=== PATIENT | male | born 1985 | race African-American/Black ===

== ENCOUNTER 2021-03-22 15:16 | Emergency (ER) | payer OTHER, SELFPAY ==
--- NOTE | ~2021-03-22 | XR_ITS ---
EXAMINATION: XR chest 2V 03/22/2021 16:45 INDICATION: Cough for 3 days. History of Covid infection. PROCEDURE: 2 view chest COMPARISON: No prior studies for comparison. FINDINGS: The lungs are clear. The cardiomediastinal silhouette is within normal limits. There are no pleural effusions. There is no pneumothorax suspected. IMPRESSION: 1: NO ACUTE CARDIOPULMONARY DISEASE. Reviewed, dictated and finalized at location A. O ANNOUNCER
[2021-03-22 15:26] VITALS: BP 138/79; PULSE 88; RESP 16; TEMP 36.6; O2SAT 100
[2021-03-22 15:30] VITALS: BP 138/79; PULSE 86; PULSE 88; RESP 16; RESP 20; TEMP 36.6; O2SAT 100; O2SAT 99
--- NOTE | 2021-03-22 16:03 | ED.URI ---
HPI - URI/Sore Throat General Chief Complaint: Upper Respiratory Infection Stated Complaint: cough,sob,wheezing Time Seen by Provider: 03/22/21 15:49 Source: patient and RN notes reviewed Mode of arrival: ambulatory Limitations: no limitations History of Present Illness HPI Narrative: Patient presents today with a 2 to 3-day history of cough with shortness of breath and subjective fever. Patient also reports right-sided sore throat that is likely due to coughing. Denies congestion, rhinorrhea, ear pain. Patient had COVID-16 February 2020 and was on a ventilator for a period of time. She now has lung related issues related to that. She has been using her nebulizer as well as inhaler. She typically only uses her albuterol inhaler prior to exercise, and has been using it over the last couple of days 6-7 times per day. She is also been using guaifenesin cough medicine, cough drops, and Manasa without much relief. She got her COVID-19 booster shot a few hours prior to onset of the cough. MD elicited complaint: cough Related Data Home Medications Medication Instructions Recorded Confirmed albuterol sulfate 90 mcg INHALATION PRN PRN 03/22/21 03/22/21 epinephrine 0.3 mg IM PRN PRN 03/22/21 03/22/21 ergocalciferol (vitamin D2) 1,250 mcg PO BID 03/22/21 03/22/21 fluticasone propion-salmeterol 2 inh INHALATION DAILY 03/22/21 03/22/21 [Advair HFA] fluticasone propionate 50 mcg INTRANASAL DAILY 03/22/21 03/22/21 montelukast 10 mg PO DAILY 03/22/21 03/22/21 omalizumab [Xolair] 150 mg SUBCUT MONTHLY 03/22/21 03/22/21 Allergies Allergy/AdvReac Type Severity Reaction Status Date / Time doxycycline Allergy Intermediate Nausea and Verified 03/22/21 16:17 Vomiting shellfish derived AdvReac Severe Anaphylaxis Verified 03/22/21 16:16 fentanyl AdvReac Intermediate Palpitation Verified 03/22/21 16:18 s Iodinated Contrast Media AdvReac Mild Hives Verified 03/22/21 16:17 Review of Systems Review of Systems: CONSTITUTIONAL: Denies body aches, fever, chills, or sweats. EYES: Denies visual changes, redness, or discharge. ENT: Denies rhinorrhea, congestion, or otalgia.+ Sore throat CARDIOVASCULAR: Denies chest pain, palpitations, or edema. RESPIRATORY: + Cough, shortness of breath GASTROINTESTINAL: Denies abdominal pain, nausea, vomiting, or diarrhea. GENITOURINARY: Denies dysuria or hematuria. SKIN: Denies rash, itching, or wounds. MUSCULOSKELETAL: Denies back pain, joint pain, or myalgia. NEUROLOGIC: Denies headache, numbness, tingling, or weakness. PSYCH: Denies depression or anxiety. [facility] Past Medical History Medical History (Updated 03/22/21 @ 16:58 by Emely Finney, [employer], ) Asthma COVID-19 Vocal cord dysfunction Comments At time of signature, I have reviewed and agree with nursing past medical, surgical, social and family history unless otherwise noted. Please see nursing chart for further information. There is no relevant family history pertinent to the presenting complaint Exam Narrative: GENERAL: Mildly ill-appearing, well-nourished, and in no acute distress. HEAD: Normocephalic, atraumatic. EYES: EOMI. No redness or drainage. Conjunctivae normal. ENT: Mucous membranes pink and moist. Nares clear. No rhinorrhea. TMs normal bilaterally. Throat normal. Uvula midline. NECK: Normal AROM. Supple. No lymphadenopathy. CHEST: No respiratory distress. Decreased aeration throughout. Lungs are very tight. Expiratory wheezes throughout. HEART: Regular rate and rhythm. No murmur appreciated. Normal peripheral pulses. EXTREMITIES: Normal range of motion. No edema. SKIN: Warm, dry, no rash. Capillary refill normal. Normal skin turgor. NEURO: No focal deficits. Alert and oriented x3. Gait steady. PSYCH: Normal affect. No signs of depression or anxiety. Course Vital Signs Vital signs: Vital Signs Temperature 97.9 F 03/22/21 15:26 Pulse Rate 88 03/22/21 15:26 Respiratory Rate 16 03/22/21 15:26 B
[2021-03-22] MEDS: ALBUTEROL SULFATE NEB 2.5 MG/3 ML INH INHALATION (16:10)
[2021-03-22] MEDS: IPRATROPIUM BR 0.02% INH SOLN 0.5 MG/2.5 ML VIAL INHALATION (16:11)
== END 2021-03-22 17:06 | disposition home or self-care (01) ==
PROVIDERS: Emergency Provider Nurse Practitioner
DX: J40 Bronchitis, not specified as acute or chronic (principal); Z86.16 Personal history of COVID-19; J45.909 Unspecified asthma, uncomplicated
CPT/HCPCS: 71046; 94640; 99203; G0463